=== PATIENT | female | born 1950 | race Caucasian/White ===

== ENCOUNTER 2017-04-13 04:47 | Emergency (ER) | payer BC ==
[~2017-04-13] VITALS: Ht 167.6 cm; Wt 71.1 kg
[~2017-04-13 04:47] MED LIST: ASCORBIC ACID500 M3 PO; ASPIRIN81 M2 PO; CALCIUM 500 MG1 EACH PO; CALTRATE 600 +1 EAC1 PO; CEFTIN500 MG PO; CLINDAMYCIN HC300 MG PO; FLECAINIDE ACET50 MG PO; FLONASE16 G1 BOTH NARES; LEVAQUIN500 MG PO; LEVOTHYROXINE100 MCG PO; LIPITOR20 MG PO; LOPRESSOR50 MG PO; METOPROLOL TART25 MG PO; MUCINEX1200 MG PO; POTASSIUM CHLO20 ME1 PO; PREDNISONE10 MG PO; TOPROL XL6.25 MG PO; VITAMIN D31000 UNIT PO; XARELTO20 MG PO
[2017-04-13 05:44] LABS: EOSINOPHIL (%) 1.3 % (0-5); EOSINOPHIL COUNT 0.1 K/uL (0-0.3); HEMATOCRIT 39.2 % (36.0-46.0); IMMATURE GRANULOCYTE (%) 0.1 % (0.0-0.7); INSTRUMENT ABS NEUTROPHIL CT 3.7 K/uL; LYMPHOCYTE COUNT 2.7 K/uL (1.0-2.8); MCH 30.4 PG (29.0-34.0); MCHC 32.7 G/DL (30.0-36.0); MCV 93.1 FL (83-99); MEAN PLAT.VOLUME 10.6 uM^3 (9.5-12.4); MONOCYTE (%) 8.5 % (3-12); MONOCYTE COUNT 0.6 K/uL (0-0.8); NEUTROPHIL (%) 52.4 % (45-76); NEUTROPHIL COUNT 3.7 K/uL (1.8-6.4); PLATELET COUNT 252 K/uL (156-360); RBC DIS.WIDTH-CV 12.6 % (11.8-14.6); RED BLOOD COUNT 4.21 M/uL (3.80-5.20); WHITE BLOOD COUNT 7.1 K/uL (4.1-10.2)
[2017-04-13 05:47] LABS: CHLORIDE 105 mEq/L (99-109); MAGNESIUM 2.1 mg/dL (1.3-2.7); POTASSIUM 3.5 mEq/L (3.7-5.4); SODIUM 142 mEq/L (136-147)
[2017-04-13 05:49] LABS: GLUCOSE 102 mg/dL (70-99)
[2017-04-13 05:50] LABS: ANION GAP 11 MEQ/L (2-14)
[2017-04-13 05:52] LABS: GFR ESTIMATE (CALCULATED) > 59 mL/min/
[2017-04-13 05:53] LABS: UREA NITROGEN (BUN) 17 mg/dL (9-23)
[2017-04-13 06:00] LABS: TROP-I INTERPRETATION NEGATIVE; TROPONIN-I < 0.01 ng/mL (0.0-0.30)
[2017-04-13 08:29] VITALS: BP 125/60
== END 2017-04-13 08:31 | disposition home or self-care (01) ==
LOC: EME 04:47
PROVIDERS: Emergency Medicine
DX: R00.2 Palpitations (principal); I48.91 Unspecified atrial fibrillation; Z79.01 Long term (current) use of anticoagulants
CPT/HCPCS: 71020; 80048; 83735; 83880; 84443; 84484; 85025; 93005; 99281; 99283

== ENCOUNTER 2017-04-26 10:26 | Emergency (ER) | payer BC ==
[~2017-04-26] VITALS: Ht 167.6 cm; Wt 70.7 kg
[2017-04-26 11:38] LABS: HEMATOCRIT 38.5 % (36.0-46.0); MCH 30.5 PG (29.0-34.0); MCHC 33.2 G/DL (30.0-36.0); MCV 91.7 FL (83-99); MEAN PLAT.VOLUME 10.1 uM^3 (9.5-12.4); PLATELET COUNT 232 K/uL (156-360); RBC DIS.WIDTH-CV 12.6 % (11.8-14.6); WHITE BLOOD COUNT 7.1 K/uL (4.1-10.2)
[2017-04-26 11:48] LABS: CHLORIDE 104 mEq/L (99-109); POTASSIUM 3.9 mEq/L (3.7-5.4); SODIUM 140 mEq/L (136-147)
[2017-04-26 11:50] LABS: GLUCOSE 124 mg/dL (70-99)
[2017-04-26 11:51] LABS: ANION GAP 9 MEQ/L (2-14)
[2017-04-26 11:54] LABS: GFR ESTIMATE (CALCULATED) > 59 mL/min/
[2017-04-26 11:55] LABS: UREA NITROGEN (BUN) 17 mg/dL (9-23)
[2017-04-26 11:59] LABS: TROP-I INTERPRETATION NEGATIVE; TROPONIN-I < 0.01 ng/mL (0.0-0.30)
[2017-04-26] MEDS ORDERED: FLECAINIDE ACE100 MG PO (13:03)
[2017-04-26] MEDS ORDERED: METOPROLOL TART25 MG PO (13:04)
[2017-04-26 13:31] LABS: ADD MIUA? YES; BILIRUBIN NEGATIVE; BLOOD SMALL; COLOR COLORLESS ((YELLOW)); GLUCOSE (STRIP) NEGATIVE; KETONES NEGATIVE; LEUKOCYTES TRACE; NITRITE NEGATIVE; PROTEIN (STRIP) NEGATIVE; SPECIFIC GRAVITY 1.003 (1.000-1.030); UROBILINOGEN 0.2 MG/DL (0.2-1.0)
[2017-04-26 13:34] LABS: BACTERIA RARE /HPF; EPITHELIAL CELLS NONE SEEN /HPF; MUCUS NONE SEEN /LPF; RED BLOOD CELLS 0-5 /HPF (0-5); WHITE BLOOD CELLS 0-5 /HPF (0-5)
[2017-04-26 14:52] VITALS: BP 127/56
== END 2017-04-26 14:59 | disposition home or self-care (01) ==
LOC: EME 10:26
PROVIDERS: Nurse Practitioner Family
DX: R00.1 Bradycardia, unspecified (principal); R55 Syncope and collapse; I48.91 Unspecified atrial fibrillation; E89.0 Postprocedural hypothyroidism; Z79.01 Long term (current) use of anticoagulants; Z90.710 Acquired absence of both cervix and uterus
CPT/HCPCS: 71020; 80048; 81003; 84484; 85027; 87086; 93005; 99281; 99284